=== PATIENT | female | born 1995 | race Caucasian/White ===

== ENCOUNTER 2018-03-15 14:49 | Outpatient (CLI) ==
[2014-05-29 15:22] VITALS: BMI 20.9
== END 2018-03-15 15:06 | disposition short-term general hospital (02) ==
LOC: AMBL 14:49
PROVIDERS: ATTEND Emergency Medicine
DX: R10.9 Unspecified abdominal pain (principal); F15.10 Other stimulant abuse, uncomplicated; R53.83 Other fatigue; R47.81 Slurred speech; Z33.1 Pregnant state, incidental; V89.2XXA Person injured in unspecified motor-vehicle accident, traffic, initial encounter